=== PATIENT | female | born 1970 | race Caucasian/White ===

== ENCOUNTER 2018-02-22 19:48 | Emergency (ER) | payer MEDICAID, OTHER ==
[~2018-02-22] VITALS: Ht 162.6 cm; Wt 84.8 kg
[~2018-02-22 19:48] MED LIST: ESOM20CA PO; RANI150T43 PO
--- NOTE | 2018-02-22 19:55 | NUR ---
PT AMBULATORY TO ER BED 10. HERE FOR LOWER PELVIC PAIN W/ DYSURIA FOR DAYS. NOW. DENIES HEMATURIA. STABEL VITALS. AWAITING MD MOON.
--- NOTE | 2018-02-22 20:58 | NUR ---
DR KERR AT BEDSIDE FOR EVAL.
[2018-02-22 21:03] LABS: APPEARANCE,URINE Clear (CLEAR); BILIRUBIN,URINE Negative (NEGATIVE); BLOOD, URINE Negative Ery/uL (NEGATIVE); COLOR,URINE Yellow (YELLOW); KETONES,URINE Negative (NEGATIVE); LEUKOCYTE ESTERASE ,URINE Negative (NEGATIVE); NITRITE, URINE Negative (NEGATIVE); PH,URINE 6.5 (5.0-8.0); PROTEIN,URINE Negative (NEGATIVE); UGLUCOSE Negative (NEGATIVE); UROBILINOGEN,URINE 0.2 EU/dL (0.2)
[2018-02-22 22:11] VITALS: BP 125/87
--- NOTE | 2018-02-22 22:11 | NUR ---
Patient discharged to home in stable condition. Written and verbal after care instructions given. Patient verbalizes understanding of instruction.
== END 2018-02-22 22:12 | disposition home or self-care (01) ==
LOC: ER 19:52
DX: R30.0 Dysuria (principal); R10.30 Lower abdominal pain, unspecified; K21.9 Gastro-esophageal reflux disease without esophagitis; Z90.49 Acquired absence of other specified parts of digestive tract; Z79.899 Other long term (current) drug therapy
CPT/HCPCS: 81001; 84703; 99284; A4606; Z7610; 81000-TC

== ENCOUNTER 2025-02-09 00:03 | Emergency (ER) | payer MEDICAID, OTHER ==
[~2025-02-09] VITALS: Ht 162.6 cm; Wt 81.6 kg
[~2025-02-09 00:03] MED LIST changes: +RANI-655 PO; -RANI150T43 PO
[2025-02-09 00:24] VITALS: BP 151/102; TEMP 98.8; O2SAT 97
== END 2025-02-09 01:00 | disposition left against medical advice (07) ==
LOC: ER 00:15
DX: R20.0 Anesthesia of skin (principal); Z53.21 Procedure and treatment not carried out due to patient leaving prior to being seen by health care provider